=== PATIENT | female | born 1955 | race Caucasian/White ===

== ENCOUNTER 2018-12-15 12:51 | Emergency (ER) | payer MEDICAID ==
[~2018-12-15] VITALS: Ht 154.9 cm; Wt 50.0 kg
[~2018-12-15 12:51] MED LIST: CARB-52 PO; CLON1TAB9 PO; FOLI-43 PO; HYDR-3927 PO; [UNRECOGNIZED DRUG - CODE] PO
[2018-12-15 14:42] LABS: BASOPHILS % (AUTO) 0.7 % (0-1); EOSINOPHILS # (AUTO) 0.1 X10'3 (0-0.9); EOSINOPHILS % (AUTO) 1.2 % (0-6); HEMATOCRIT 36.7 % (35.0-45.0); HEMOGLOBIN 12.3 g/dl (12.0-16.0); LYMPHOCYTES # (AUTO) 2.6 X10'3 (1.1-4.8); LYMPHOCYTES % (AUTO) 40.3 % (21-51); MEAN CORPUSCULAR HEMOGLOBIN 31.7 PG (27.0-31.0); MEAN CORPUSCULAR HGB CONC 33.4 g/dL (33.0-36.5); MEAN CORPUSCULAR VOLUME 94.7 FL (78-98); MEAN PLATELET VOLUME 7.7 FL (7.4-10.4); MONOCYTES % (AUTO) 15.6 % (2-12); NEUTROPHILS # (AUTO) 2.7 X10'3 (1.8-7.7); NEUTROPHILS % (AUTO) 42.2 % (42-75); PLATELET COUNT 319 X10'3 (140-440); RED BLOOD COUNT 3.88 X10'6 (4.20-5.60); RED CELL DISTRIBUTION WIDTH 12.9 % (11.5-14.5); WHITE BLOOD COUNT 6.3 X10'3 (4.5-11.0)
[2018-12-15 14:51] LABS: ALANINE AMINOTRANSFERASE 32 U/L (12-78); ALBUMIN 4.4 G/DL (3.4-5.0); ALBUMIN/GLOBULIN RATIO 1.3 (1.1-1.5); ALKALINE PHOSPHATASE 65 IU/L (46-116); ANION GAP 13 (8-16); ASPARTATE AMINO TRANSFERASE 23 U/L (10-37); BILIRUBIN,TOTAL 0.2 MG/DL (0.1-1.0); BLOOD UREA NITROGEN 11 MG/DL (7-18); CALCIUM 9.1 MG/DL (8.5-10.1); CHLORIDE 103 MMOL/L (99-107); CREATININE 0.61 MG/DL (0.40-0.90); GLUCOSE 114 MG/DL (70-104); POTASSIUM 3.5 MMOL/L (3.5-5.1); SODIUM 135 MMOL/L (135-145); TOTAL CARBON DIOXIDE 19.3 MMOL/L (24-32); TOTAL PROTEIN 7.8 G/DL (6.4-8.2); eGFR > 90 ML/MIN
[2018-12-15 14:53] LABS: PARTIAL THROMBOPLASTIN TIME 26 SECONDS (22-32)
[2018-12-15 14:54] LABS: TROPONIN I < 0.04 NG/ML (0.0-0.05)
--- NOTE | 2018-12-15 16:48 | NUR ---
Patient asssited to the bathroom by , stated upon arriving back into room. She is unable to void.
[2018-12-15] MEDS ORDERED: morphine 4 MG/ML inj SYRINge IV ONE (17:00)
[2018-12-15 17:27] VITALS: BP 154/80
[2018-12-15 17:45] LABS: CARBAMAZEPINE (TEGRETOL) 11.7 UG/ML (4.0-12.0)
[2018-12-15 18:22] LABS: CLARITY,URINE SLIGHTLY CLOUDY (Clear); COLOR,URINE YELLOW (Yellow); GLUCOSE, URINE NEGATIVE (Neg); KETONES,URINE NEGATIVE (Neg); LEUKOCYTE ESTERASE ,URINE TRACE (Neg); NITRITES, URINE NEGATIVE (Neg); OCCULT BLOOD,URINE SMALL (Neg); PH,URINE 5.5 (4.8-8.0); PROTEIN,URINE NEGATIVE (Neg); UROBILINOGEN,URINE 0.2 E.U/dL (0.2-1.0)
[2018-12-15 18:31] LABS: URINE AMPHETAMINE SCREEN NEGATIVE (Neg); URINE BARBITUATE SCREEN NEGATIVE (Neg); URINE BENZODIAZEPINES SCREEN NEGATIVE (Neg); URINE CANNABINOID SCREEN NEGATIVE (Neg); URINE COCAINE SCREEN NEGATIVE (Neg); URINE METHADONE SCREEN NEGATIVE (Neg); URINE OPIATE SCREEN POSITIVE (Neg); URINE PHENCYCLIDINE SCREEN NEGATIVE (Neg)
[2018-12-15 18:35] LABS: UA COLLECTION TYPE CLN CATCH MIDSTREAM
[2018-12-15 18:36] LABS: BACTERIA,URINE 2+ /HPF (Neg); RBC,URINE 0-2 /HPF (0-2); SQUAMOUS EPITHELIAL CELL,UR FEW /LPF (FEW)
== END 2018-12-15 19:34 | disposition home or self-care (01) ==
LOC: ER 12:52
DX: M79.602 Pain in left arm (principal); M79.601 Pain in right arm; M54.89 Other dorsalgia; R20.0 Anesthesia of skin; G89.29 Other chronic pain; M54.9 Dorsalgia, unspecified; Z87.891 Personal history of nicotine dependence; Z88.6 Allergy status to analgesic agent
CPT/HCPCS: 36415; 70450; 71045; 80053; 80156; 80305; 81001; 84484; 85025; 85610; 85730; 87077; 87088; 87186; 93005; 96374; 99284; J2270

== ENCOUNTER 2019-12-10 13:38 | Emergency (ER) | payer MEDICAID ==
[~2019-12-10] VITALS: Ht 157.5 cm; Wt 107.0 kg
[2019-12-10] MEDS ORDERED: ketorolac trometh. 30mg/ml inj. IV ONE (14:15)
[2019-12-10] MEDS ORDERED: acetaminophen 325mg tablet PO ONE (14:15)
[2019-12-10] MEDS ORDERED: normal saline 1000ml 1,000 ML IV ONE (14:15)
[2019-12-10] MEDS ORDERED: fentaNYL/PF 50MCG/1 ML 2ML syringe IV ONE (14:15)
[2019-12-10] MEDS ORDERED: ondansetron/PF 4mg/2ml inj IV ONE (14:15)
--- NOTE | 2019-12-10 15:30 | NUR ---
iv appears infiltrated, pt c/o pain at site, very slightly swollen. ivf stopped. Dr Gonzalez aware, ok to not not complete about 500 ml ivf left, no need to restart iv
[2019-12-10 15:47] VITALS: BP 132/83
[2019-12-10] MEDS ORDERED: MELO-100 PO (16:35)
== END 2019-12-10 17:18 | disposition home or self-care (01) ==
LOC: ER 13:39
DX: M79.604 Pain in right leg (principal); G89.29 Other chronic pain; Z86.69 Personal history of other diseases of the nervous system and sense organs; Z86.19 Personal history of other infectious and parasitic diseases; Z90.49 Acquired absence of other specified parts of digestive tract; Z98.890 Other specified postprocedural states; Z88.5 Allergy status to narcotic agent; Z79.899 Other long term (current) drug therapy
CPT/HCPCS: 96374; 96375; 99284; J1885; J2405; J3010; J7030

== ENCOUNTER 2021-02-11 14:30 | Emergency (ER) | payer MEDICAID ==
[~2021-02-11] VITALS: Ht 157.5 cm; Wt 58.6 kg
[~2021-02-11 14:30] MED LIST changes: +MELO-100 PO
--- NOTE | 2021-02-11 14:37 | NUR ---
Called poison control regarding patients possible ingestion of clonipine 1 mg 0-12 tablets at approx. 1130 today in an attempt to harm herself. Patient is lethargic, but alert and oriented. concern for sedation- intubate if unable to protect airway. Recommended labs to be drawn: asa, salicylate level, chemistry, LFT, urine drug screen, Ethanol level No real concern for patient due to current level of consciousness, but observation for 6 hours and rule out any other co-ingestions. no reversal agents recommended supportive care indicated
[2021-02-11] MEDS ORDERED: normal saline 1000ML IV soln IVB ONE (15:20)
[2021-02-11 15:56] LABS: BASOPHILS % (AUTO) 0.7 % (0-1); EOSINOPHILS # (AUTO) 0.1 X10'3 (0-0.9); EOSINOPHILS % (AUTO) 3.2 % (0-6); HEMATOCRIT 30.9 % (35.0-45.0); HEMOGLOBIN 10.5 g/dl (12.0-16.0); LYMPHOCYTES # (AUTO) 1.3 X10'3 (1.1-4.8); LYMPHOCYTES % (AUTO) 36.1 % (21-51); MEAN CORPUSCULAR HEMOGLOBIN 32.3 PG (27.0-31.0); MEAN CORPUSCULAR HGB CONC 33.9 g/dL (33.0-36.5); MEAN CORPUSCULAR VOLUME 95.3 FL (78-98); MEAN PLATELET VOLUME 7.6 FL (7.4-10.4); MONOCYTES # (AUTO) 0.5 X10'3 (0-0.9); MONOCYTES % (AUTO) 14.2 % (2-12); NEUTROPHILS # (AUTO) 1.7 X10'3 (1.8-7.7); NEUTROPHILS % (AUTO) 45.8 % (42-75); PLATELET COUNT 237 X10'3 (140-440); RED BLOOD COUNT 3.24 X10'6 (4.20-5.60); RED CELL DISTRIBUTION WIDTH 12.9 % (11.5-14.5); WHITE BLOOD COUNT 3.6 X10'3 (4.5-11.0)
--- NOTE | 2021-02-11 16:05 | NUR ---
relieving RN for lunch, pt is resting quietly on gurney, resp even and unlabored, skin p/w/d, 1st liter NS infusing w/o
[2021-02-11 16:07] LABS: ALANINE AMINOTRANSFERASE 25 U/L (12-78); ALBUMIN 3.6 G/DL (3.4-5.0); ALBUMIN/GLOBULIN RATIO 1.2 (1.1-1.5); ALKALINE PHOSPHATASE 71 IU/L (46-116); ANION GAP 9 (8-16); ASPARTATE AMINO TRANSFERASE 12 U/L (10-37); BILIRUBIN,TOTAL 0.2 MG/DL (0.1-1.0); BLOOD UREA NITROGEN 12 MG/DL (7-18); BUN/CREATININE RATIO 21.4 (6.6-38.0); CALCIUM 8.7 MG/DL (8.5-10.1); CHLORIDE 109 MMOL/L (99-107); CREATININE 0.56 MG/DL (0.40-0.90); GLUCOSE 101 MG/DL (70-104); POTASSIUM 3.4 MMOL/L (3.5-5.1); SODIUM 142 MMOL/L (135-145); TOTAL CARBON DIOXIDE 24.3 MMOL/L (24-32); TOTAL PROTEIN 6.7 G/DL (6.4-8.2); eGFR > 90 ML/MIN
[2021-02-11 16:17] LABS: ETHANOL < 0.010 GM/DL (0.0-0.010)
[2021-02-11 16:28] LABS: CLARITY,URINE CLEAR (Clear); COLOR,URINE STRAW (Yellow); GLUCOSE, URINE NEGATIVE (Neg); KETONES,URINE NEGATIVE (Neg); LEUKOCYTE ESTERASE ,URINE NEGATIVE (Neg); NITRITES, URINE NEGATIVE (Neg); OCCULT BLOOD,URINE NEGATIVE (Neg); PH,URINE 5.5 (4.8-8.0); PROTEIN,URINE NEGATIVE (Neg); URINE HCG NEGATIVE (NEG); UROBILINOGEN,URINE 0.2 E.U/dL (0.2-1.0)
[2021-02-11 16:31] LABS: UA COLLECTION TYPE CLN CATCH MIDSTREAM
[2021-02-11 16:52] LABS: URINE AMPHETAMINE SCREEN NEGATIVE (Neg); URINE BARBITUATE SCREEN NEGATIVE (Neg); URINE BENZODIAZEPINES SCREEN NEGATIVE (Neg); URINE CANNABINOID SCREEN NEGATIVE (Neg); URINE COCAINE SCREEN NEGATIVE (Neg); URINE METHADONE SCREEN NEGATIVE (Neg); URINE OPIATE SCREEN NEGATIVE (Neg); URINE PHENCYCLIDINE SCREEN NEGATIVE (Neg)
--- NOTE | 2021-02-11 18:45 | NUR ---
Assumed care of patient, received report from Margie SRIVASTAVA, introduced myself to patient and her only need at this time is that she is hungry.
--- NOTE | 2021-02-11 19:52 | NUR ---
Assessed pt and she was seen by [facility], she denies current S/I, it appears this was an impulsive act due to the stress of fighting with her daughter. [facility] spoke with caregiver and they gave him resources for pt to see mental health, they will notify Dr Campo about findings and no need for 5150.
--- NOTE | 2021-02-11 19:57 | NUR ---
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
--- NOTE | 2021-02-11 20:01 | NUR ---
Contacted neonatal intensive care unit nurse Manuelito to notify him of discharge, [facility] gave me resources to give to him when he arrives for patient to follow up with mental health.
--- NOTE | 2021-02-11 20:11 | NUR ---
Removed IV at this time to prepare for discharge.
--- NOTE | 2021-02-11 20:34 | NUR ---
Pt discharged to Manuelito the caregiver at this time, given mental health resources and need for F/U
[2021-02-11 20:35] VITALS: BP 137/86
== END 2021-02-11 20:39 | disposition home or self-care (01) ==
LOC: ER 14:31
DX: R45.851 Suicidal ideations (principal)
CPT/HCPCS: 36415; 80053; 80305; 80320; 81003; 81025; 84443; 85025; 93005; 99285; J7030

== ENCOUNTER 2022-10-07 17:10 | Emergency (ER) | payer MEDICARE, MEDICAID ==
[~2022-10-07] VITALS: Ht 154.9 cm; Wt 61.0 kg
[~2022-10-07 17:10] MED LIST changes: -CLON1TAB9 PO; +[UNRECOGNIZED DRUG - CODE] PO
[2022-10-07 18:07] LABS: BASOPHILS % (AUTO) 0.6 % (0-1); EOSINOPHILS # (AUTO) 0.1 X10'3 (0-0.9); EOSINOPHILS % (AUTO) 1.3 % (0-6); HEMATOCRIT 35.2 % (35.0-45.0); HEMOGLOBIN 11.9 g/dl (12.0-16.0); LYMPHOCYTES # (AUTO) 2.5 X10'3 (1.1-4.8); LYMPHOCYTES % (AUTO) 42.7 % (21-51); MEAN CORPUSCULAR HGB CONC 33.8 g/dL (33.0-36.5); MEAN CORPUSCULAR VOLUME 94.7 FL (78-98); MEAN PLATELET VOLUME 7.3 FL (7.4-10.4); MONOCYTES # (AUTO) 0.9 X10'3 (0-0.9); NEUTROPHILS # (AUTO) 2.4 X10'3 (1.8-7.7); NEUTROPHILS % (AUTO) 40.4 % (42-75); PLATELET COUNT 328 X10'3 (140-440); RED BLOOD COUNT 3.71 X10'6 (4.20-5.60)
[2022-10-07 18:20] LABS: ALANINE AMINOTRANSFERASE 26 U/L (12-78); ALBUMIN 4.6 G/DL (3.4-5.0); ALBUMIN/GLOBULIN RATIO 1.4 (1.1-1.5); ALKALINE PHOSPHATASE 98 IU/L (46-116); ANION GAP 11 (8-16); ASPARTATE AMINO TRANSFERASE 24 U/L (10-37); BILIRUBIN,TOTAL 0.4 MG/DL (0.1-1.0); BLOOD UREA NITROGEN 11 MG/DL (7-18); BUN/CREATININE RATIO 14.3 (6.6-38.0); CALCIUM 9.5 MG/DL (8.5-10.1); CHLORIDE 99 MMOL/L (99-107); CREATININE 0.77 MG/DL (0.40-0.90); GLUCOSE 115 MG/DL (70-104); SODIUM 133 MMOL/L (135-145); TOTAL PROTEIN 7.8 G/DL (6.4-8.2); eGFR 75 ML/MIN
[2022-10-07 18:26] VITALS: BP 120/91
[2022-10-07 18:27] LABS: CARBAMAZEPINE (TEGRETOL) 14.4 UG/ML (4.0-12.0)
[2022-10-07] MEDS ORDERED: LORazepam 2 mg/ml vial IV ONE (18:45)
[2022-10-07] MEDS ORDERED: normal saline 1000ml 1,000 ML IV ONE (18:45)
[2022-10-07 19:03] LABS: CREATINE KINASE 95 U/L (26-192)
[2022-10-07 19:05] LABS: CLARITY,URINE SLIGHTLY CLOUDY (Clear); COLOR,URINE YELLOW (Yellow); GLUCOSE, URINE NEGATIVE (Neg); KETONES,URINE TRACE mg/dl (Neg); LEUKOCYTE ESTERASE ,URINE NEGATIVE (Neg); NITRITES, URINE NEGATIVE (Neg); OCCULT BLOOD,URINE TRACE-INTACT (Neg); PH,URINE 7.5 (4.8-8.0); PROTEIN,URINE NEGATIVE (Neg); UROBILINOGEN,URINE 0.2 E.U/dL (0.2-1.0)
[2022-10-07 19:10] LABS: UA COLLECTION TYPE STRAIGHT CATH
[2022-10-07 19:12] LABS: BACTERIA,URINE 4+ /HPF (Neg); MUCUS STRANDS FEW /LPF (Neg); RBC,URINE 0-2 /HPF (0-2); SQUAMOUS EPITHELIAL CELL,UR FEW /LPF (FEW); WBC CLUMPS,URINE FEW /HPF (NEGATIVE)
[2022-10-07 19:43] LABS: URINE AMPHETAMINE SCREEN NEGATIVE (Neg); URINE BARBITUATE SCREEN NEGATIVE (Neg); URINE BENZODIAZEPINES SCREEN NEGATIVE (Neg); URINE CANNABINOID SCREEN POSITIVE (Neg); URINE COCAINE SCREEN NEGATIVE (Neg); URINE METHADONE SCREEN NEGATIVE (Neg); URINE OPIATE SCREEN NEGATIVE (Neg); URINE PHENCYCLIDINE SCREEN NEGATIVE (Neg)
[2022-10-07] MEDS ORDERED: LORazepam 1 MG tablet PO ONE (21:20)
--- NOTE | 2022-10-10 09:30 | NUR ---
POSITIVE URINE CULTURE REPORTED FROM LAB. ER , DR. PENA, ORDERED ANTIBIOTIC TO TREAT THE INFECTION AND PREFERRED PHARMACY ([facility] ON ) WAS CALLED WITH NEW MEDICATION ORDER. PATIENT WAS NOTIFIED AT HOME AND WILL FLAG FOOTBALL COACH NEW MEDICATION TODAY.
== END 2022-10-07 21:49 | disposition home or self-care (01) ==
LOC: ER 17:11
DX: G40.909 Epilepsy, unspecified, not intractable, without status epilepticus (principal); G89.29 Other chronic pain; F41.9 Anxiety disorder, unspecified; M54.50 Low back pain, unspecified; Z88.5 Allergy status to narcotic agent
CPT/HCPCS: 36415; 70450; 80053; 80156; 80305; 81001; 82550; 85025; 87077; 87088; 87186; 96361; 96374; 99285; J2060; J7030; A4353

== ENCOUNTER 2022-10-15 16:12 | Emergency (ER) | payer MEDICARE, MEDICAID ==
[~2022-10-15] VITALS: Ht 157.5 cm; Wt 59.1 kg
[2022-10-15] MEDS ORDERED: LORazepam 2 mg/ml vial IM ONE (17:25)
[2022-10-15 19:07] VITALS: BP 132/77
== END 2022-10-15 19:13 | disposition home or self-care (01) ==
LOC: ER 16:12
DX: G24.01 Drug induced subacute dyskinesia (principal); G89.29 Other chronic pain; M54.9 Dorsalgia, unspecified; Z88.5 Allergy status to narcotic agent; Z79.899 Other long term (current) drug therapy; Z79.1 Long term (current) use of non-steroidal anti-inflammatories (NSAID)
CPT/HCPCS: 96372; 99283; J2060

== ENCOUNTER 2022-12-30 17:36 | Emergency (ER) | payer MEDICARE, MEDICAID ==
[~2022-12-30] VITALS: Ht 157.5 cm; Wt 61.4 kg
[~2022-12-30 17:36] MED LIST changes: +[UNRECOGNIZED DRUG - CODE] PO; -[UNRECOGNIZED DRUG - CODE] PO
[2022-12-30 17:49] VITALS: BP 96/72
== END 2022-12-30 19:21 | disposition home or self-care (01) ==
LOC: ER 17:37
DX: L03.116 Cellulitis of left lower limb (principal); G89.29 Other chronic pain; M54.9 Dorsalgia, unspecified
CPT/HCPCS: 99284

== ENCOUNTER 2023-01-28 22:10 | Emergency (ER) | payer MEDICARE, MEDICAID ==
[~2023-01-28] VITALS: Ht 154.9 cm; Wt 59.1 kg
[2023-01-28 22:51] VITALS: BP 128/90
== END 2023-01-28 23:07 | disposition home or self-care (01) ==
LOC: ER 22:11
DX: R53.1 Weakness (principal); T39.395A Adverse effect of other nonsteroidal anti-inflammatory drugs [NSAID], initial encounter; T43.215A Adverse effect of selective serotonin and norepinephrine reuptake inhibitors, initial encounter; T42.6X5A Adverse effect of other antiepileptic and sedative-hypnotic drugs, initial encounter; G89.29 Other chronic pain; F12.10 Cannabis abuse, uncomplicated; Z88.8 Allergy status to other drugs, medicaments and biological substances; Z79.899 Other long term (current) drug therapy; Y92.89 Other specified places as the place of occurrence of the external cause
CPT/HCPCS: 99284

== ENCOUNTER 2023-03-03 22:38 | Emergency (ER) | payer MEDICARE, MEDICAID ==
[~2023-03-03] VITALS: Ht 157.5 cm; Wt 59.1 kg
[2023-03-03 22:54] VITALS: BP 126/71
[2023-03-03] MEDS ORDERED: ondansetron 4mg rapidly disintigrating tab PO ONE (23:35)
[2023-03-03] MEDS ORDERED: ONDA4TAB12 PO (23:35)
[2023-03-03] MEDS ORDERED: HYDROcodone/acetaminophen 5mg/325mg tablet PO ONE (23:35)
[2023-03-03] MEDS ORDERED: HYDR-3965 PO (23:35)
--- NOTE | 2023-03-04 00:07 | NUR ---
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 NO RESPONSE FROM PAGE OR CALL TO PERSONAL PHONE. [facility] WAS NOTIFIED AND ALSO HAD NO RESPONSE WHEN ATTEMPTED TO CONTACT.
== END 2023-03-04 00:27 | disposition home or self-care (01) ==
LOC: ER 22:39
DX: S52.501A Unspecified fracture of the lower end of right radius, initial encounter for closed fracture (principal); F12.90 Cannabis use, unspecified, uncomplicated; Z98.890 Other specified postprocedural states; W19.XXXA Unspecified fall, initial encounter; Y93.89 Activity, other specified; Y92.89 Other specified places as the place of occurrence of the external cause; Y99.8 Other external cause status
CPT/HCPCS: 29125; 73110; 99284; A4565; A6449

== ENCOUNTER 2023-03-13 11:55 | Emergency (ER) | payer MEDICARE, MEDICAID ==
[~2023-03-13] VITALS: Ht 157.5 cm; Wt 56.8 kg
[~2023-03-13 11:55] MED LIST changes: +ONDA4TAB12 PO
[2023-03-13] MEDS ORDERED: normal saline 1000ML IV soln IVB ONE (15:05)
[2023-03-13] MEDS ORDERED: pantoprazole 40 MG vial IV ONE (15:05)
[2023-03-13] MEDS ORDERED: ondansetron/PF 4mg/2ml inj IV ONE (15:05)
[2023-03-13] MEDS ORDERED: pantoprazole 40 MG/NS 100ML add-vantage BAG IV ONE (15:15)
[2023-03-13 15:29] LABS: BASOPHILS % (AUTO) 0.3 % (0-1); EOSINOPHILS % (AUTO) 0.1 % (0-6); HEMATOCRIT 33.2 % (35.0-45.0); HEMOGLOBIN 11.5 g/dl (12.0-16.0); LYMPHOCYTES # (AUTO) 1.4 X10'3 (1.1-4.8); LYMPHOCYTES % (AUTO) 41.4 % (21-51); MEAN CORPUSCULAR HEMOGLOBIN 31.8 PG (27.0-31.0); MEAN CORPUSCULAR HGB CONC 34.8 g/dL (33.0-36.5); MEAN CORPUSCULAR VOLUME 91.4 FL (78-98); MEAN PLATELET VOLUME 7.1 FL (7.4-10.4); MONOCYTES # (AUTO) 0.5 X10'3 (0-0.9); NEUTROPHILS # (AUTO) 1.5 X10'3 (1.8-7.7); NEUTROPHILS % (AUTO) 44.2 % (42-75); PLATELET COUNT 284 X10'3 (140-440); RED BLOOD COUNT 3.63 X10'6 (4.20-5.60); RED CELL DISTRIBUTION WIDTH 12.4 % (11.5-14.5); WHITE BLOOD COUNT 3.5 X10'3 (4.5-11.0)
[2023-03-13 15:42] LABS: ALANINE AMINOTRANSFERASE 58 U/L (12-78); ALBUMIN 3.9 G/DL (3.4-5.0); ALBUMIN/GLOBULIN RATIO 1.1 (1.1-1.5); ALKALINE PHOSPHATASE 79 IU/L (46-116); ANION GAP 9 (8-16); ASPARTATE AMINO TRANSFERASE 33 U/L (10-37); BILIRUBIN,TOTAL 0.4 MG/DL (0.1-1.0); BLOOD UREA NITROGEN 8 MG/DL (7-18); BUN/CREATININE RATIO 11.4 (10.0-20.0); CALCIUM 8.9 MG/DL (8.5-10.1); CHLORIDE 91 MMOL/L (99-107); GLUCOSE 103 MG/DL (70-104); POTASSIUM 3.6 MMOL/L (3.5-5.1); SODIUM 129 MMOL/L (135-145); TOTAL CARBON DIOXIDE 29.2 MMOL/L (24-32); TOTAL PROTEIN 7.3 G/DL (6.4-8.2); eGFR 83 ML/MIN
[2023-03-13] MEDS ORDERED: ONDA8TAB13 PO (16:18)
[2023-03-13 16:42] VITALS: BP 145/49
== END 2023-03-13 16:47 | disposition home or self-care (01) ==
LOC: ER 11:56
DX: R11.10 Vomiting, unspecified (principal); F12.90 Cannabis use, unspecified, uncomplicated; Z98.890 Other specified postprocedural states
CPT/HCPCS: 36415; 80053; 85025; 96361; 96374; 96375; 99284; C9113; J2405; J7030

== ENCOUNTER 2023-09-23 15:17 | Emergency (ER) | payer MEDICARE, MEDICAID ==
[~2023-09-23] VITALS: Ht 160 cm; Wt 61.1 kg
[~2023-09-23 15:17] MED LIST changes: +ONDA8TAB13 PO
[2023-09-23] MEDS ORDERED: TETanus/Pertussis (Acell)/Diphther VAC/PF (Tdap-Adult) 0.5ml syringe IMVAC ONE (15:55)
[2023-09-23] MEDS ORDERED: ceFAZolin 1000mg inj IV ONE (15:55)
[2023-09-23 16:21] LABS: BASOPHILS % (AUTO) 0.7 % (0-1); EOSINOPHILS # (AUTO) 0.1 X10'3 (0-0.9); EOSINOPHILS % (AUTO) 1.6 % (0-6); HEMATOCRIT 35.8 % (35.0-45.0); LYMPHOCYTES # (AUTO) 1.4 X10'3 (1.1-4.8); LYMPHOCYTES % (AUTO) 28.4 % (21-51); MEAN CORPUSCULAR HEMOGLOBIN 32.5 PG (27.0-31.0); MEAN CORPUSCULAR HGB CONC 33.7 g/dL (33.0-36.5); MEAN CORPUSCULAR VOLUME 96.6 FL (78-98); MEAN PLATELET VOLUME 7.5 FL (7.4-10.4); MONOCYTES # (AUTO) 0.8 X10'3 (0-0.9); MONOCYTES % (AUTO) 16.1 % (2-12); NEUTROPHILS # (AUTO) 2.5 X10'3 (1.8-7.7); NEUTROPHILS % (AUTO) 53.2 % (42-75); PLATELET COUNT 283 X10'3 (140-440); RED CELL DISTRIBUTION WIDTH 13.5 % (11.5-14.5); WHITE BLOOD COUNT 4.8 X10'3 (4.5-11.0)
[2023-09-23] MEDS ORDERED: ceFAZolin 1,000 MG in NS 50ML IVPB IV ONE (16:25)
[2023-09-23 16:30] LABS: ALANINE AMINOTRANSFERASE 31 U/L (12-78); ALBUMIN 3.6 G/DL (3.4-5.0); ALKALINE PHOSPHATASE 63 IU/L (46-116); ANION GAP 10 (8-16); ASPARTATE AMINO TRANSFERASE 20 U/L (10-37); BILIRUBIN,TOTAL 0.2 MG/DL (0.1-1.0); BLOOD UREA NITROGEN 19 MG/DL (7-18); BUN/CREATININE RATIO 28.8 (10.0-20.0); CALCIUM 8.4 MG/DL (8.5-10.1); CHLORIDE 103 MMOL/L (99-107); CREATININE 0.66 MG/DL (0.40-0.90); GLUCOSE 130 MG/DL (70-104); POTASSIUM 3.8 MMOL/L (3.5-5.1); SODIUM 138 MMOL/L (135-145); TOTAL CARBON DIOXIDE 25.5 MMOL/L (24-32); TOTAL PROTEIN 7.1 G/DL (6.4-8.2); eCRCL 67 ML/MIN; eGFR 89 ML/MIN
[2023-09-23 16:38] LABS: PRO BRAIN NATRIURETIC PEPTIDE 142 PG/ML (0-125)
[2023-09-23 17:30] LABS: CARBAMAZEPINE (TEGRETOL) 17.5 UG/ML (4.0-12.0)
[2023-09-23 19:29] VITALS: TEMP 97.6
[2023-09-23] MEDS ORDERED: CEPH-585 PO (20:08)
[2023-09-23 20:57] VITALS: BP 145/76; PULSE 58; RESP 16; O2SAT 99
== END 2023-09-23 21:04 | disposition home or self-care (01) ==
LOC: ER 15:18
DX: S01.01XA Laceration without foreign body of scalp, initial encounter (principal); R56.9 Unspecified convulsions; G89.29 Other chronic pain; F12.90 Cannabis use, unspecified, uncomplicated; Z79.2 Long term (current) use of antibiotics; Z23 Encounter for immunization; Z79.899 Other long term (current) drug therapy; X58.XXXA Exposure to other specified factors, initial encounter; Y93.89 Activity, other specified; Y92.89 Other specified places as the place of occurrence of the external cause; Y99.8 Other external cause status
CPT/HCPCS: 12001; 36415; 70450; 71045; 72125; 80053; 80156; 83880; 84484; 85025; 90715; 93005; 99285; J0690; J7030